=== PATIENT | female | born 1945 ===

== ENCOUNTER 2016-11-27 06:48 | Day surgery (SDC) | payer MEDICARE, OTHER ==
[2016-11-27] VITALS (7 sets, daily range): BP systolic 130–155; BP diastolic 75–95
[~2016-11-27] VITALS: Ht 165.1 cm; Wt 83.9 kg
[2016-11-27] MEDS: Gatifloxacin Opth Solution 0.5% RIGHT EYE SCH ×3 (06:00→08:09)
[2016-11-27] MEDS ORDERED: Diclofenac Sod 0.1% Op Soln ONE (07:47)
[2016-11-27] MEDS ORDERED: Akten 3.5% 1ml Btl ONE (07:47)
[2016-11-27] MEDS ORDERED: Gatifloxacin Opth Solution 0.5% ONE (07:48)
[2016-11-27] MEDS ORDERED: Tobradex Opth Susp 2.5ml ONE (07:48)
[2016-11-27] MEDS ORDERED: Tropicamide 1% Opth Soln ONE (07:48)
[2016-11-27] MEDS ORDERED: Phenylephrine 2.5% Op Soln ONE (07:48)
[2016-11-27] MEDS: Tobradex Opth Susp 2.5ml RIGHT EYE SCH ×3 (07:52→08:09)
[2016-11-27] MEDS: Phenylephrine 2.5% Op Soln RIGHT EYE SCH ×3 (07:52→08:09)
[2016-11-27] MEDS: Diclofenac Sod 0.1% Op Soln RIGHT EYE SCH ×3 (07:52→08:09)
[2016-11-27] MEDS: Tropicamide 1% Opth Soln RIGHT EYE SCH ×3 (07:52→08:09)
[2016-11-27] MEDS: Akten 3.5% 1ml Btl RIGHT EYE SCH ×3 (07:52→08:09)
--- NOTE | 2016-11-27 08:08 | Pre-Procedure Note/Attestation ---
Pre-Procedure Note/Attestation Complete Prior to Procedure Planned Procedure: right Procedure Narrative: cataract extraction with implant right eye Indications for Procedure Pre-Operative Diagnosis: cataract right eye Attestation I attest that I discussed the nature of the procedure; its benefits; risks and complications; and alternatives (and the risks and benefits of such alternatives ), prior to the procedure, with the patient (or the patient's legal canvas products sales representative). I attest that, if there was a reasonable possibility of needing a blood transfusion, the patient (or the patient's legal canvas products sales representative) was given the [facility] standardized written summary, pursuant to the [place] Blood Safety Act ([place] Health and Safety Code # 1645, as amended). I attest that I re-evaluated the patient just prior to the surgery and that there has been no change in the patient's H&P, except as documented below: BAILEY SAMAYOA Nov 27, 2016 08:08
[2016-11-27] MEDS ORDERED: NORVASC5 MG ORAL (08:17)
[2016-11-27] MEDS ORDERED: LOSARTAN POTAS100 MG ORAL (08:17)
[2016-11-27] MEDS ORDERED: THERA TEARS1 EAC1 OP (08:17)
[2016-11-27] MEDS ORDERED: ATORVASTATIN CA20 MG ORAL (08:17)
[2016-11-27] MEDS ORDERED: VITAMIN D400 INTLU ORAL (08:17)
[2016-11-27] MEDS ORDERED: ASPIR 8181 MG ORAL (08:17)
[2016-11-27] MEDS ORDERED: METFORMIN HCL500 M5 PO (08:17)
[2016-11-27] MEDS ORDERED: fentaNYL 100 mcg/2 mL IV ONE (10:00)
[2016-11-27] MEDS ORDERED: Midazolam 2mg/2ml Inj ONE (10:00)
[2016-11-27] MEDS ORDERED: Sterile Water Irrig 1000ml IRRIG ONE (10:00)
[2016-11-27] MEDS ORDERED: LR 1000ml ONE (10:00)
[2016-11-27] MEDS ORDERED: NS Irrig 1000ml ONE (10:00)
--- NOTE | 2016-11-27 10:27 | Anethesia Preoperative Eval ---
Anesthesia Pre-op PMH/ROS General Date of Evaluation: Nov 27, 2016 Time of Evaluation: 10:26 Anesthesiologist: tena ASA Score: ASA 3 Mallampati Score Class I : Soft palate, uvula, fauces, pillars visible Class II: Soft palate, uvula, fauces visible Class III: Soft palate, base of uvula visible Class IV: Only hard plate visible Mallampati Classification: Class III Surgeon: Shady Diagnosis: cataract Surgical Procedure: Cataract extraction with IOL Anesthesia History: none Family History: no anesthesia problems Allergies: Coded Allergies: No Known Allergies (Unverified , 11/27/16) Medications: see eMAR Past Medical History Cardiovascular: Reports: HTN Pulmonary: Denies: COPD, ERICA, asthma, other Gastrointestinal/Genitourinary: Denies: CRI, ESRD, GERD, other Neurologic/Psychiatric: Denies: CVA, TIA, dementia, depression/anxiety, other Endocrine: Reports: DM HEENT: Reports: cataract (R) Hematology/Immune: Reports: anemia Musculoskeletal/Integumentary: Reports: DJD, OA Other: obesity Anesthesia Pre-op Phys. Exam Physician Exam Last Vital Signs Date Time Temp Pulse Resp B/P Pulse Ox O2 Delivery O2 Flow Rate FiO2 11/27/16 07:58 98.2 62 20 130/80 97 Room Air Anesthesia Pre-op A/P Studies Pre-op Studies: EKG - SR Risk Assessment & Plan Plan: mac Status Change Before Surgery: No Pre-Antibiotics Drug: none BERNABE BEE CRNA Nov 27, 2016 10:27
[2016-11-27] MEDS ORDERED: acetaZOLAMIDE 500mg Inj ONE (10:50)
[2016-11-27] MEDS ORDERED: Carbachol 0.01% Op Soln 1.5ml vial ONE (10:50)
[2016-11-27] MEDS ORDERED: Sodium Hyaluronate 14 mg/ml 0.85ml ONE ×2 (10:50→13:03)
--- NOTE | 2016-11-27 10:52 | Brief Operative Note ---
Immediate Post Operative Note Operative Note Pre-op Diagnosis: cataract right eye Procedure: phacoemulsification of cataract with implant right eye Post-op Diagnosis: same as pre-op Findings: other - history of trauma, zonular dehiscence supero-nasal quadrant Surgeon: bailey calle Director Of Field Service: none Anesthesiologist: thong madsen crna Anesthesia: MAC Specimen: none Complications: none - vitreous presented through the zonular dehiscence and was removed with the avit. Estimated Blood Loss: none Drains: none Implant(s) used?: Yes BAILEY CALLE Nov 27, 2016 10:52
--- NOTE | 2016-11-27 11:09 | Immediate Post-Op Evaluation ---
Immediate Post-Op Evalulation Immediate Post-Op Evalulation Procedure: cataract extraction right eye Date of Evaluation: Nov 27, 2016 Time of Evaluation: 10:55 IV Fluids: 200 Blood Pressure Systolic: 135 Blood Pressure Diastolic: 81 Pulse Rate: 57 Respiratory Rate: 15 O2 Sat by Pulse Oximetry: 99 Nausea: No Vomiting: No Patient Status: awake, patent Hydration Status: adequate Drug: none KATHYRILLIONBERNABE CRNA Nov 27, 2016 11:09
[2016-11-27] MEDS ORDERED: BSS 500ml btl ONE (13:02)
[2016-11-27] MEDS ORDERED: Dexamethasone 4mg/ml vial ONE (13:02)
[2016-11-27] MEDS ORDERED: Lidocaine 1% MPF 10mg/ml 5ml ONE (13:02)
[2016-11-27] MEDS ORDERED: EPINEPHrine 1mg/1ml Amp ONE (13:03)
[2016-11-27] MEDS ORDERED: BSS 15ml BTL ONE (13:03)
[2016-11-27] MEDS ORDERED: Povidone-Iodine 5% opth solution ONE (13:03)
--- NOTE | 2016-11-27 21:40 | Operative Note - Dictated ---
DATE OF OPERATION: 11/27/2016 PREOPERATIVE DIAGNOSIS: Cataract, right eye. POSTOPERATIVE DIAGNOSIS: Cataract, right eye. PROCEDURE: Phacoemulsification of cataract, right eye with placement of posterior chamber intraocular lens. SURGEON: Larry Caruso M.D. ([facility] [place]) CABLE INSTALLATION MANAGER: None. ANESTHESIA: MAC/topical. ANESTHESIOLOGIST: Marla Walsh CRNA. INDICATION FOR PROCEDURE: Poor vision, right eye. 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 DESCRIPTION OF PROCEDURE: The patient received a topical anesthetic block consisting of 3.5% Akten eye drops. The eye was prepped and draped in usual manner. A lid speculum was placed. An operating Zeiss microscope was positioned. A temporal corneal groove was made with the nixon blade. A SuperSharp blade made a stab incision at the 12 o'clock position. A 0.1 mL of 1% nonpreserved intracameral lidocaine was injected. Healon was instilled into the anterior chamber and a 2.5/2.8 mm trapezoidal nixon blade was used to complete the temporal corneal wound. A cystotome was used to create an anterior capsular flap. It was noted at this point that the anterior capsule was loose. There was a healed anterior capsular defect from her previous trauma. Utrata forceps were used to complete the capsulorrhexis. BSS on a cannula was used to hydrodissect the nucleus. The lens nucleus phacoemulsified in a phaco-fracture technique. Remaining cortical material was removed with the I/A. Healon was reinstilled into the capsular bag and anterior chamber. An Mccurdy foldable one-piece posterior chamber intraocular lens, model ZCB00, power 22.0 diopter, serial #[id number] was placed in the injector. The lens was put in the capsular bag. The I/A tip was used to remove the Healon and position the lens. There was noted to be a small amount of vitreous that presented through the zonular defect. An anterior vitrectomy unit was used to remove the vitreous. Miostat was instilled for miosis. The wound edge was hydrated with BSS and a blunt-tipped cannula. The wound was checked and found to be watertight. The lid speculum was removed and a drop of TobraDex and Zymaxid placed. A clear plastic shield was taped over the eye. The patient tolerated the procedure well and left the operating room in good condition. Larry Caruso M.D. ([facility]) DR: LUCINDA JOB#: [id number] CC:
[2016-11-29 13:14] VITALS: BP 140/60
--- NOTE | 2016-11-29 13:14 | 48 Hour Post Anesthesia Eval ---
Post Anesthesia Evaluation Procedure: cataract extraction right eye Date of Evaluation: Nov 29, 2016 Time of Evaluation: 13:14 Blood Pressure Systolic: 140 0: 60 Pulse Rate: 70 O2 Sat by Pulse Oximetry: 100 Airway: patent Nausea: No Vomiting: No Hydration Status: adequate Cardiopulmonary Status: stable Mental Status/LOC: patient returned to baseline Post-Anesthesia Complications: none Follow-up care needed: N/A BERNABE BEE CRNA Nov 29, 2016 13:14
== END 2016-11-27 13:50 | disposition home or self-care (01) ==
LOC: SUR 06:48
DX: H25.811 Combined forms of age-related cataract, right eye (principal); E11.9 Type 2 diabetes mellitus without complications; Z79.84 Long term (current) use of oral hypoglycemic drugs; I10 Essential (primary) hypertension; E78.5 Hyperlipidemia, unspecified; E21.3 Hyperparathyroidism, unspecified; M19.90 Unspecified osteoarthritis, unspecified site; D64.9 Anemia, unspecified; E66.9 Obesity, unspecified; Z68.31 Body mass index [BMI] 31.0-31.9, adult; Z90.710 Acquired absence of both cervix and uterus; Z79.82 Long term (current) use of aspirin; Z79.899 Other long term (current) drug therapy; Z88.8 Allergy status to other drugs, medicaments and biological substances
CPT/HCPCS: 66984; 82962; J0171; J1100; J1120; J2250; J3010; J7120; V2632; 94003; 94150